=== PATIENT | male | born 1960 | race Asian ===

== ENCOUNTER 2019-05-29 07:20 | Day surgery (SDC) | payer OTHER ==
[~2019-05-29] VITALS: Ht 174 cm; Wt 63.5 kg
[2019-05-29] VITALS (9 sets, daily range): BP systolic 109–124; BP diastolic 65–89
[~2019-05-29 07:20] MED LIST: MAGNESIUM500 MG PO; MSM1000 M1 PO; OXYCODONE HCL5 M2 ORAL; VITAMIN B-1100 M2 PO; VITAMIN C500 M1 ORAL; ceFAZolin 1gm IVPB IVPB ONE; celeBREX 200mg Cap **SURGERY PATIENTS ONLY ORAL ONE; oxyCONTIN 20mg tab ORAL ONE
--- NOTE | 2019-05-29 07:35 | Pre-Procedure Note/Attestation ---
Pre-Procedure Note/Attestation Complete Prior to Procedure Planned Procedure: left Procedure Narrative: shoulder diagnostic arthroscopy, sad, pancapsular release, labral repair Attestation I attest that I discussed the nature of the procedure; its benefits; risks and complications; and alternatives (and the risks and benefits of such alternatives ), prior to the procedure, with the patient (or the patient's legal installation service representative). I attest that, if there was a reasonable possibility of needing a blood transfusion, the patient (or the patient's legal installation service representative) was given the [facility] standardized written summary, pursuant to the [place] Blood Safety Act ([place] Health and Safety Code # 1645, as amended). I attest that I re-evaluated the patient just prior to the surgery and that there has been no change in the patient's H&P, except as documented below: Raulito Rubio MD May 29, 2019 07:35
--- NOTE | 2019-05-29 07:36 | Operative Note - PDOC ---
Operative Note Operative Note Pre-op Diagnosis: left shoulder internal derangment Procedure: see op report Post-op Diagnosis: same as pre-op plus Operative Findings: consistent w/pre-op dx studies Anesthesia: regional Specimen: none Complications: none Condition: stable Estimated Blood Loss: none Implant(s) used?: No Raulito Rubio MD May 29, 2019 07:36
[2019-05-29] MEDS ORDERED: celeBREX 200mg Cap **SURGERY PATIENTS ONLY ORAL ONE (09:03)
[2019-05-29] MEDS ORDERED: oxyCONTIN 20mg tab ORAL ONE (09:03)
[2019-05-29] MEDS ORDERED: LR 1000ml 1,000 ML IVLG SCH (10:47)
--- NOTE | 2019-05-29 10:50 | Anethesia Preoperative Eval ---
Anesthesia Pre-op PMH/ROS General Date of Evaluation: May 29, 2019 Time of Evaluation: 12:09 Anesthesiologist: Won ASA Score: ASA 2 Mallampati Score Class I : Soft palate, uvula, fauces, pillars visible Class II: Soft palate, uvula, fauces visible Class III: Soft palate, base of uvula visible Class IV: Only hard plate visible Mallampati Classification: Class II Surgeon: Ramiro Diagnosis: L Shoulder Pain Surgical Procedure: L Shoulder Arthroscopy Anesthesia History: none Family History: no anesthesia problems Allergies: Uncoded Allergies: STEROID (Allergy, Mild, ITCHY SKIN, 05/28/19) Medications: see eMAR Patient NPO?: Yes Past Medical History Neurologic/Psychiatric: Reports: depression/anxiety PSxH Narrative: R Shoulder, Knee, Femur, Foot SX Anesthesia Pre-op Phys. Exam Physician Exam Last Vital Signs Date Time Temp Pulse Resp B/P (MAP) Pulse Ox O2 Delivery O2 Flow Rate FiO2 05/29/19 08:32 97.6 60 20 109/78 100 Room Air Constitutional: NAD Neurologic: CN 2-12 intact Cardiovascular: RRR Respiratory: CTA Gastrointestinal: S/NT/ND Airway Exam Mallampati Score: Class II MO: full ROM: full Teeth: intact Anesthesia Pre-op A/P Risk Assessment & Plan Assessment: ASA 2 Plan: GA, L Supraclavicular Block, SED Status Change Before Surgery: No Pre-Antibiotics Dru Gram Ancef IV Given Within 1 Hr of Incision: Yes Time Given: 12:31 Nick Roblero MD May 29, 2019 10:50
[2019-05-29] MEDS ORDERED: Labetalol 5mg/ml 20ml vial IV PRN (11:00)
[2019-05-29] MEDS ORDERED: DiphenhydrAMINE 50mg/ml Inj IVP PRN (11:00)
[2019-05-29] MEDS ORDERED: Metoclopramide 10mg/2ml Inj IVP PRN (11:00)
[2019-05-29] MEDS ORDERED: HYDROcodone/Acetamin 7.5/325 tab ORAL PRN (11:00)
[2019-05-29] MEDS ORDERED: Ketorolac 30mg Inj IV PRN ×2 (11:00)
[2019-05-29] MEDS ORDERED: Meperidine 50mg/ml Inj(FOR RIGORS ONLY) IVP PRN (11:00)
[2019-05-29] MEDS ORDERED: Atropine Sulfate 0.4mg/ml inj IVP PRN (11:00)
[2019-05-29] MEDS ORDERED: HYDROcodone/Acetamin 5/325 tab ORAL PRN ×2 (11:00→16:14)
[2019-05-29] MEDS ORDERED: oxyCODONE HCL/Acetaminophen 5/325mg ORAL PRN (11:00)
[2019-05-29] MEDS ORDERED: fentaNYL 100 mcg/2 mL IV PRN (11:00)
[2019-05-29] MEDS ORDERED: Lidocaine 1% MPF 10mg/ml 5ml ONE (11:23)
[2019-05-29] MEDS ORDERED: Dexamethasone 4mg/ml vial ONE (11:23)
[2019-05-29] MEDS ORDERED: Ropivacaine 5mg/ml Vial 30ml INJ ONE (11:24)
[2019-05-29] MEDS ORDERED: Duramorph PF 5mg/10ml amp ONE (11:55)
[2019-05-29] MEDS ORDERED: Kenalog-40 1ml Vial ONE (11:56)
[2019-05-29] MEDS ORDERED: Sterile Water Irrig 1000ml IRRIG ONE (12:00)
[2019-05-29] MEDS ORDERED: Propofol 200mg/20ml IV ONE (12:00)
[2019-05-29] MEDS ORDERED: NS Irrig 1000ml ONE (12:00)
[2019-05-29] MEDS ORDERED: LR 1000ml ONE (12:00)
[2019-05-29] MEDS ORDERED: NS Irrig 4000ml IRRIG ONE (13:14)
--- NOTE | 2019-05-29 14:05 | Immediate Post-Op Evaluation ---
Immediate Post-Op Evalulation Immediate Post-Op Evalulation Procedure: L Shoulder Arthroscopy Date of Evaluation: May 29, 2019 Time of Evaluation: 14:20 IV Fluids: 1200 LR Blood Products: 0 Estimated Blood Loss: 25 Urinary Output: 0 Blood Pressure Systolic: 120 Blood Pressure Diastolic: 73 Pulse Rate: 72 Respiratory Rate: 16 O2 Sat by Pulse Oximetry: 100 Temperature (Fahrenheit): 97.2 Pain Score (1-10): 0 Nausea: No Vomiting: No Complications 0 Patient Status: awake, reacts, patent, none Dru Gram Ancef IV Given Within 1 Hr of Incision: Yes Time Given: 12:31 Nick Roblero MD May 29, 2019 14:05
--- NOTE | 2019-05-29 14:06 | 48 Hour Post Anesthesia Eval ---
Post Anesthesia Evaluation Procedure: L Shoulder Arthroscopy Date of Evaluation: May 29, 2019 Time of Evaluation: 14:34 Blood Pressure Systolic: 118 0: 72 Pulse Rate: 74 Respiratory Rate: 18 Temperature (Fahrenheit): 97.6 O2 Sat by Pulse Oximetry: 99 Airway: patent Nausea: No Vomiting: No Pain Intensity: 0 Hydration Status: adequate Cardiopulmonary Status: Stable Mental Status/LOC: patient returned to baseline Follow-up Care/Observations: 0 Post-Anesthesia Complications: 0 Follow-up care needed: ready to discharge Nick Roblero MD May 29, 2019 14:06
[2019-05-29] MEDS ORDERED: LORazepam Inj 2mg/ml 1ml IV PRN (16:10)
[2019-05-29] MEDS ORDERED: Hydromorphone 0.5mg/0.5ml inj IVP PRN (16:10)
[2019-05-29] MEDS ORDERED: Midazolam 2mg/2ml Inj IVP PRN (16:10)
[2019-05-29] MEDS ORDERED: D5 1/2NS 1,000 ML IV SCH (16:14)
[2019-05-29] MEDS ORDERED: Tylenol #3 tab (300mg/30mg) ORAL PRN (16:14)
[2019-05-29] MEDS ORDERED: HYDROmorphone 1mg/ml Carpuject SUBQ PRN (16:14)
--- NOTE | 2019-05-29 19:15 | Operative Note - Dictated ---
DATE OF OPERATION: 05/29/2019 PREOPERATIVE DIAGNOSIS: 1. Left shoulder severe adhesive capsulitis. 2. Closed treatment of left scapular fracture. 3. Left shoulder anterior labral tear. 4. Left shoulder impingement/bursitis. POSTOPERATIVE DIAGNOSES: 1. Left shoulder severe adhesive capsulitis. 2. Closed treatment of left scapular fracture. 3. Left shoulder anterior labral tear. 4. Left shoulder impingement/bursitis. PROCEDURE: 1. Left shoulder diagnostic arthroscopy and extensive intraarticular debridement. 2. Subacromial decompression, bursectomy. 3. Manipulation under anesthesia, left shoulder. 4. Lysis of adhesions. SURGEON: Raulito Rubio M.D. ANESTHESIA: Interscalene with general. INDICATION FOR PROCEDURE: The patient is a pleasant gentleman, who has a significant fall to his left shoulder and had left scapular fracture as well as AC joint sprain. MRI showed possible tears of the labrum as well as significant thickening of the capsule consistent with capsulitis. The patient subsequently could not improve his range of motion and therefore elected to undergo left shoulder arthroscopy, pancapsular release with the splint, subacromial decompression bursectomy. Risks, limitations, expectations, complications were discussed in detail including continued pain, need for future surgery, risk of anesthesia, medical complications, DVT, PE, and mortality risks. All questions were addressed. DESCRIPTION OF PROCEDURE: After informed consent was obtained, the patient was brought to the operating room. The patient was placed under interscalene general anesthesia. The patient's left shoulder prepped and draped in a sterile manner. Time-out was performed. At this point, examination under anesthesia showed forward flexion was 30, abduction 30, extension was 20. anesthesia was performed with forward flexion to 160, abduction 160, shoulder abducted to external rotation and slight internal rotation was 60. At this point, the camera was placed in the glenohumeral joint. Evacuation of hematoma was performed. A medial working portal of the rotator interval was performed. Release of the capsule from the rotator interval extending anterior to the subscap inferiorly was performed. Once this was done, the anterior labrum was noted to be intact. There is no chondral damage. The biceps tendon was intact. The undersurface rotator cuff was intact. At this point, the camera was placed through the rotator interval and posterior capsular release was also performed. Once this was done, palpable release of the adhesions was performed. At this point, camera was placed in the subacromial space, multiple subdeltoid adhesions, and hypertrophic bursal tissue. Complete bursectomy was performed. The undersurface of acromion was identified. Acromioplasty was started from lateral to medial and completed from posterior to anterior. Once that was done, further lysis of adhesions and excision of bursa was completed. Once that was done, the instruments were removed. Portal sites were closed with 3-0 Monocryl sutures. Steri-Strips and a sterile dressing were applied. ESTIMATED BLOOD LOSS: Minimal. COMPLICATIONS: None. SPECIMENS: None. IMPLANTS: None. Raulito Rubio M.D. DR: Dipti JOB#: [id number] CC:
== END 2019-05-29 15:35 | disposition home or self-care (01) ==
LOC: SUR 07:20
DX: M75.02 Adhesive capsulitis of left shoulder (principal); S43.402A Unspecified sprain of left shoulder joint, initial encounter; S42.102A Fracture of unspecified part of scapula, left shoulder, initial encounter for closed fracture; M75.42 Impingement syndrome of left shoulder; F32.9 Major depressive disorder, single episode, unspecified; F41.9 Anxiety disorder, unspecified; Z88.6 Allergy status to analgesic agent; X58.XXXA Exposure to other specified factors, initial encounter; Y92.9 Unspecified place or not applicable
CPT/HCPCS: 23575; 29823; J0690; J1100; J1885; J2250; J2405; J2704; J2795; J3301; J7120; 94003; 94150